=== PATIENT | male | born 1990 | race Caucasian/White ===

== ENCOUNTER 2020-03-23 06:39 | Emergency (ER) | payer SELFPAY ==
--- NOTE | 2020-03-23 06:50 | CT_ITS ---
PROCEDURE: CT ORBIT BI WO CON CLINICAL HISTORY: Left eye pain (r/o intraocular foreign body) Left eye injury with pain, evaluate for foreign body COMPARISON: No exams were available for comparison TECHNIQUE: Oral Contrast: None IV Contrast: None Axial images obtained with sagittal and coronal reformats. All CT scans at the facility use one or more dose reduction, viz: automated exposure control, ma/kV adjustment per patient size (including targeted exams where dose is matched to indication, i.e. head), or iterative reconstruction technique. FINDINGS: There is a 2 cm retention cyst in the floor the left maxillary sinus. There is mild leftward nasal septal deviation with a septal spur projecting toward the left causing narrowing of the left nasal canal. No fracture or dislocation. No bony destructive process. No radiopaque foreign body of the orbits. No soft tissue mass or adenopathy. IMPRESSION: No radiopaque foreign body apparent. Leftward nasal septal deviation with left maxillary sinus retention cyst Dictated by: Johnathan Robertson MD 03/23/2020 07:55 Johnathan Robertson MD in [facility] 03/23/2020 07:55
[2020-03-23 06:52] VITALS: BMI 20.3
[2020-03-23 06:55] VITALS: BP 130/78; PULSE 89; RESP 14; TEMP 37.5; O2SAT 100; BMI 20.3
--- NOTE | 2020-03-23 07:06 | [facility].EDEYEP ---
ED Disposition Clinical Impression: Foreign body, eye Qualifiers: Encounter type: initial encounter Laterality: left Qualified Code(s): T15.92XA - Foreign body on external eye, part unspecified, left eye, initial encounter Disposition: Still a Patient Condition on Discharge: Good - Critical Care Critical Care Time: No Attestation: On , the high probability of a clinically significant, sudden or life threatening deterioration of the following system(s) required my full and direct attention, intervention and personal management. The time I documented below is in addition to time spent performing reported procedures but includes the following listed in this critical care notation. Medical Decision Making - Medical Records Medical records reviewed: Yes: I reviewed the patient's medical records. - Naresh Inquiry Pt receiving controlled substance: No Vital Signs: 03/23/20 06:55 Temperature 99.5 F Temperature Source Oral Pulse Rate [Left] 89 Respiratory Rate 14 Blood Pressure [Right Arm] 130/78 Blood Pressure Mean [Right Arm] 95 Blood Pressure Source [Right Arm] Automatic Cuff Blood Pressure Position [Right Arm] Sitting 02 Sat by Pulse Oximetry 100 Oxygen Delivery Method Room Air Orders (Tests/Meds): ED MEDICATIONS Discontinued Medications Generic Name Dose Route Start Last Admin Trade Name Freq PRN Reason Stop Dose Admin Tetanus/Diphtheria Toxoids 0.5 ml 03/23/20 07:19 03/23/20 07:20 Tenivac 0.5ml Syringe IM 03/23/20 07:20 0.5 ml .ONCE ONE Administration ORDERS Category Date Time Status CT orbit BI wo con Stat Cat Scan 03/23/20 06:50 Taken Medical Decision Narrative: Patient 29-year-ol male withd left eye complaint. Patient presents with differential diagnosis including intraocular foreign body versus corneal abrasion versus corneal ulceration. 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 CT orbits will be obtained. His tetanus will be updated as he is unsure of his tetanus status. Tetracaine drops applied and I was able to do a fluorescein exam which demonstrated what appear to be a rust ring overlying the cornea. I did use a Q-tip applicator to try to remove any discernible foreign body without a discernible foreign body within the rust ring. Patient's CT still pending and patient care transferred to oncoming ED physician. At this time, I do believe ophthalmology follow-up today for removal of rust ring would be appropriate if there is no intraocular foreign body. Patient has had improved symptoms after tetracaine ophthalmic drops and probably should be discharged on erythromycin topical ophthalmic ointment but this should be coordinated with on-call reference test clerk. Assessment: Foreign body, left Assessment: Per oncoming physician Eye Problem HPI - General Chief complaint: Eye Problems Stated complaint: Foreign Body left eye Time Seen by Provider: 03/23/20 07:06 Mode of Arrival: Ambulatory Limitations: No Limitations Description of Symptoms (Recalled from ER Triage Doc. by RN): Pt states his eye become red and irritated after grinding metal at work - History of Present Illness HPI Narrative: Patient is a 29-year-old male presenting with left eye complaint. 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 Ever since he has had a redness and irritation noted to his left eye. He denies specific blurry vision but has had some tearing. No specific photophobia, pain on eye movement. He does have some pain in the front and the back of his eye. - Related Data Home Medications Medication Instructions Recorded Confirmed No Known Home Medications 03/23/20 03/23/20 Allergies Allergy/AdvReac Type Severity Reaction Status Date / Time No Known Allergies Allergy Verified 03/23/20
--- NOTE | 2020-03-23 07:58 | PC.NURSE ---
Called Dr. Shelley and left a voicemail
--- NOTE | 2020-03-23 07:59 | PC.NURSE ---
speaking with Dr. Shelley
--- NOTE | 2020-03-23 08:01 | PC.NURSE ---
DR RICKETTS SAID COME TO THE OFFICE AT 10AM TODAY
[2020-03-23 08:26] VITALS: BP 125/80; PULSE 90; RESP 16; TEMP 37.5; O2SAT 100
== END 2020-03-23 08:27 | disposition home or self-care (01) ==
LOC: ER 08:24
PROVIDERS: Emergency Provider Emergency Medicine
DX: T15.92XA Foreign body on external eye, part unspecified, left eye, initial encounter (principal); W45.8XXA Other foreign body or object entering through skin, initial encounter; Y92.69 Other specified industrial and construction area as the place of occurrence of the external cause; Y99.0 Civilian activity done for income or pay; Z23 Encounter for immunization
CPT/HCPCS: 70480; 90471; 90714; 99282

== ENCOUNTER 2023-04-20 10:13 | Outpatient (CLI) | payer SELFPAY ==
[2023-04-20 10:40] VITALS: BMI 26.5
== END 2023-04-20 11:03 | disposition home or self-care (01) ==
LOC: UTC.OUT 10:15
PROVIDERS: Visit Provider Nurse Practitioner Family
DX: Z02.4 Encounter for examination for driving license (principal)